=== PATIENT | male | born 1950 | race Caucasian/White ===

== ENCOUNTER 2017-10-01 09:38 | Outpatient (CLI) | payer MEDICARE | END 2017-10-01 09:39 | disposition home or self-care (01) | LOC: NAV ULT 09:38 | PROVIDERS: ATTEND Family Medicine | DX: I08.1 Rheumatic disorders of both mitral and tricuspid valves (principal); R01.1 Cardiac murmur, unspecified | CPT/HCPCS: 93306 ==